=== PATIENT | female | born 1980 | race African-American/Black ===

== ENCOUNTER 2020-11-11 11:40 | Emergency (ER) | payer MEDICAID, OTHER ==
[~2020-11-11] VITALS: Ht 157.5 cm; Wt 80.0 kg
[2020-11-11] MEDS ORDERED: ACETAMINOPHEN 325MG TABLET PO STA (12:05)
[2020-11-11] MEDS ORDERED: IBUPROFEN 600MG TABLET PO STA (12:05)
[2020-11-11 12:47] LABS: BASOPHILS % 0.6 % (0.0-2.0); EOSINOPHILS % 0.3 % (0.0-5.0); HEMATOCRIT. 43.7 % (36.0-48.0); HEMOGLOBIN. 14.9 g/dL (12.0-16.0); LYMPHOCYTES % 7.2 % (20.0-50.0); MEAN CORPUSCULAR HEMOGLOBIN 28.9 pg (28.0-32.0); MEAN CORPUSCULAR VOLUME 84.9 fL (81.0-99.0); MEAN PLATELET VOLUME 9.1 fl (7.4-10.4); MONOCYTES % 12.2 % (2.0-8.0); NEUTROPHILS % 79.7 % (40.0-76.0); PLATELET 273 x1000/uL (130-400); RED BLOOD CELL COUNT 5.15 mill/uL (4.2-5.4)
[2020-11-11 13:11] LABS: HCG SCREEN NEGATIVE
[2020-11-11 13:26] LABS: CHLORIDE 99 mEq/L (98-107)
[2020-11-11] MEDS ORDERED: CLONIDINE 0.1MG TABLET PO NR (13:45)
[2020-11-11 14:16] LABS: CLARITY URINE CLOUDY (CLEAR); COLOR URINE YELLOW (YELLOW); KETONES URINE NEGATIVE (NEGATIVE); LEUKOCYTE ESTERASE URINE TRACE (NEGATIVE); NITRITE URINE NEGATIVE (NEGATIVE); OCCULT BLOOD URINE 1+ (NEGATIVE); PH URINE 6.5 (4.5-8.0); PROTEIN URINE 3+ (NEGATIVE); SPECIFIC GRAVITY URINE 1.021 (1.005-1.030)
[2020-11-11] MEDS ORDERED: HYDR25TA MT (14:21)
[2020-11-11 15:05] VITALS: BP 177/99
== END 2020-11-11 15:16 | disposition home or self-care (01) ==
LOC: ER 11:40 → CANBEDREQ 16:54
DX: U07.1 COVID-19 (principal); I10 Essential (primary) hypertension; F17.200 Nicotine dependence, unspecified, uncomplicated
CPT/HCPCS: 36415; 71045; 80053; 81003; 82728; 83605; 84145; 84484; 84703; 85025; 85384; 86140; 87040; 87086; 93005; 99285; C9803; U0003; U0005

== ENCOUNTER 2024-12-21 14:03 | Inpatient (IN) | payer MEDICAID ==
[~2024-12-21] VITALS: Ht 175.3 cm; Wt 92.5 kg
[2024-12-21] VITALS (11 sets, daily range): BP systolic 141–189; BP diastolic 81–100; PULSE 80–93; RESP 20–26; TEMP 36.22512; O2SAT 99–100
[~2024-12-21 14:03] MED LIST: HYDR25TA MT
[2024-12-21 16:15] LABS: HEMATOCRIT. 32.1 % (36.0-48.0); HEMOGLOBIN. 10.2 g/dL (12.0-16.0); MEAN PLATELET VOLUME 9.2 fl (7.4-10.4); PLATELET 236 x1000/uL (130-400); RED BLOOD CELL COUNT 3.53 mill/uL (4.2-5.4); RED CELL DISTRIBUTION WIDTH 20.5 % (11.6-14.6)
[2024-12-21 16:33] LABS: INR 1.1
[2024-12-21 16:40] LABS: UREA NITROGEN BLOOD 80 mg/dL (9-23)
[2024-12-21 16:41] LABS: ASPARTATE AMINOTRANSFERASE 31 IU/L (<34); BILIRUBIN DIRECT < 0.1 mg/dL (<=3.0)
[2024-12-21 16:42] LABS: BILIRUBIN TOTAL < 0.2 mg/dL (0.1-1.0); PROTEIN TOTAL 7.4 g/dL (6.0-8.3)
[2024-12-21 16:51] LABS: CREATININE 13.9 mg/dL (0.6-1.0); TROPONIN I HIGH SENSITIVITY 57 ng/L (3.0-34)
[2024-12-21] MEDS: LORAZEPAM 2MG/ML UD SYRINGE IV NR (17:56)
[2024-12-21 18:00] LABS: EOSINOPHILS % MANUAL 2.0 % (0.0-5.0); LYMPHOCYTES % MANUAL 4.0 % (20.0-60.0); MONOCYTES % MANUAL 7.0 % (2.0-8.0); NEUTROPHILS % MANUAL 87.0 % (45.0-75.0); PLATELET ESTIMATE NORMAL
[2024-12-21] MEDS ORDERED: KETAMINE HCL 50 MG/ML 10ML ONE (18:49)
[2024-12-21] MEDS: MIDAZOLAM HCL 2 MG/2 ML VIAL IV ONE (18:59)
[2024-12-21] MEDS: KETAMINE HCL 50 MG/ML 10ML IM ONE (18:59)
[2024-12-21 20:04] LABS: HEMATOCRIT. 34.6 % (36.0-48.0); HEMOGLOBIN. 10.7 g/dL (12.0-16.0); MEAN PLATELET VOLUME 8.7 fl (7.4-10.4); PLATELET 276 x1000/uL (130-400); RED BLOOD CELL COUNT 3.68 mill/uL (4.2-5.4); RED CELL DISTRIBUTION WIDTH 20.3 % (11.6-14.6)
[2024-12-21] MEDS: PROPOFOL 10MG/ML 100ML 100 ML IV SCH (20:09)
[2024-12-21 20:13] LABS: UREA NITROGEN BLOOD 73 mg/dL (9-23)
[2024-12-21 20:15] LABS: ASPARTATE AMINOTRANSFERASE 75 IU/L (<34); BILIRUBIN TOTAL < 0.2 mg/dL (0.1-1.0); PROTEIN TOTAL 7.7 g/dL (6.0-8.3)
[2024-12-21] MEDS ORDERED: ACETAMINOPHEN 650MG SUPP PR PRN (20:30)
[2024-12-21] MEDS ORDERED: ACETAMINOPHEN 650MG/20.3ML UDC NG PRN (20:30)
[2024-12-21 20:43] LABS: CREATININE 14.2 mg/dL (0.6-1.0); TROPONIN I HIGH SENSITIVITY 69 ng/L (3.0-34)
[2024-12-21 21:13] LABS: BG BASE EXCESS -14.2 mmol/L (-2.0-3.0); BG CARBOXYHEMOGLOBIN 1.1 % (0.5-1.5); BG DEOXYHEMOGLOBIN 0.2 % (0.0-5.0); BG FRACTION INSPIRED OXYGEN 100; BG HCO3 ACT 11.7 mmol/L (21.0-28.0); BG METHEMOGLOBIN 0.3 % (0.5-1.5); BG OXYGEN SATURATION 99.8 % (94.0-98.0); BG OXYHEMOGLOBIN 98.4 % (94.0-98.0); BG PCO2 27.7 mmHg (32.0-45.0); BG PEEP (cmH2O) 5.0 cmH2O; BG PH 7.244 (7.350-7.450); BG PO2 299.5 mmHg (83.0-108.0); BG SAMPLE SITE RIGHT RADIAL; BG TIDAL VOLUME(mL) 500.0 mL; BG TOTAL HEMOGLOBIN 10.9 g/dL (12.0-16.0); BG VENT MODE VENT - APRV; BG VENT RATE 20.0 set
[2024-12-21 21:58] LABS: EOSINOPHILS % MANUAL 4.0 % (0.0-5.0); LYMPHOCYTES % MANUAL 18.0 % (20.0-60.0); MONOCYTES % MANUAL 15.0 % (2.0-8.0); NEUTROPHILS % MANUAL 63.0 % (45.0-75.0); PLATELET ESTIMATE NORMAL
[2024-12-21 22:23] LABS: UREA NITROGEN BLOOD 75 mg/dL (9-23)
[2024-12-21 22:39] LABS: CREATININE 13.2 mg/dL (0.6-1.0); PHOSPHORUS 9.7 mg/dL (2.5-4.9)
[2024-12-22] VITALS (120 sets, daily range): BP systolic 111–207; BP diastolic 64–120; PULSE 86–103; RESP 10–34; TEMP 36.3918–36.7516; O2SAT 95–100
[2024-12-22 00:39] LABS: *AMPHETAMINES SCREEN URINE PRESUMPTIVE POSITIVE (NEGATIVE); *BARBITURATES SCREEN URINE NEGATIVE (NEGATIVE); *BENZODIAZEPINES SCREEN URINE NEGATIVE (NEGATIVE); *COCAINE SCREEN URINE NEGATIVE (NEGATIVE); METHADONE URINE SCREEN NEGATIVE (NEGATIVE); OPIATES URINE SCREEN NEGATIVE (NEGATIVE)
[2024-12-22 00:40] LABS: CANNABINOID URINE SCREEN NEGATIVE (NEGATIVE); ECSTASY MDMA SCREEN URINE NEGATIVE (NEGATIVE); PHENCYCLIDINE URINE SCREEN NEGATIVE (NEGATIVE)
[2024-12-22] MEDS ORDERED: PROPOFOL 10MG/ML 100ML 100 ML IV PRN (02:00)
[2024-12-22] MEDS: PROPOFOL 10MG/ML 100ML 100 ML IV PRN (02:42)
[2024-12-22] MEDS: LABETALOL 5MG/ML 4ML INJ IV PRN (04:35)
[2024-12-22 04:41] LABS: HEMATOCRIT. 35.1 % (36.0-48.0); HEMOGLOBIN. 11.5 g/dL (12.0-16.0); MEAN PLATELET VOLUME 9.1 fl (7.4-10.4); PLATELET 246 x1000/uL (130-400); RED BLOOD CELL COUNT 3.96 mill/uL (4.2-5.4); RED CELL DISTRIBUTION WIDTH 20.5 % (11.6-14.6)
[2024-12-22 05:00] LABS: UREA NITROGEN BLOOD 42.0 mg/dL (9-23)
[2024-12-22 05:03] LABS: PHOSPHORUS 6.2 mg/dL (2.5-4.9)
[2024-12-22] MEDS: NICARDIPINE 50 MG in SODIUM CHLORIDE 0.9% 230 ML IV PRN (05:12)
[2024-12-22 05:28] LABS: CREATININE 9.1 mg/dL (0.6-1.0)
[2024-12-22] MEDS ORDERED: PANTOPRAZOLE SODIUM 40 MG/VIAL IV SCH (09:00)
[2024-12-22] MEDS ORDERED: ONDANSETRON HCL 4MG/2ML INJ IV PRN ×2 (09:00→09:15)
[2024-12-22] MEDS ORDERED: ACETAMINOPHEN 325MG TABLET PO PRN (09:15)
[2024-12-22] MEDS: PANTOPRAZOLE SODIUM 40 MG/VIAL IV SCH (09:45)
[2024-12-22 09:46] LABS: BG BASE EXCESS -5.8 mmol/L (-2.0-3.0); BG CARBOXYHEMOGLOBIN 1.5 % (0.5-1.5); BG DEOXYHEMOGLOBIN 0.8 % (0.0-5.0); BG FRACTION INSPIRED OXYGEN 50; BG HCO3 ACT 17.4 mmol/L (21.0-28.0); BG METHEMOGLOBIN 0.3 % (0.5-1.5); BG OXYGEN SATURATION 99.2 % (94.0-98.0); BG OXYHEMOGLOBIN 97.4 % (94.0-98.0); BG PCO2 27.5 mmHg (32.0-45.0); BG PEEP (cmH2O) 5.0 cmH2O; BG PH 7.419 (7.350-7.450); BG PO2 149.9 mmHg (83.0-108.0); BG SAMPLE SITE RIGHT RADIAL; BG TIDAL VOLUME(mL) 500.0 mL; BG TOTAL HEMOGLOBIN 11.5 g/dL (12.0-16.0); BG VENT MODE VENT - AC; BG VENT RATE 20.0 set
[2024-12-22] MEDS: ENOXAPARIN 100MG/ML SYR SUBCUT SCH (09:46)
[2024-12-22 10:12] LABS: BAND% 2.0 % (1.0-6.0); LYMPHOCYTES % MANUAL 4.0 % (20.0-60.0); MONOCYTES % MANUAL 6.0 % (2.0-8.0); NEUTROPHILS % MANUAL 88.0 % (45.0-75.0); PLATELET ESTIMATE NORMAL
[2024-12-22] MEDS: CEFTRIAXONE 1GM/50ML 50 ML IV SCH (11:10)
[2024-12-22] MEDS: LANTHANUM CARBONATE 500MG CHEW TABLET PO SCH (12:57)
[2024-12-22 19:09] LABS: CLARITY URINE CLEAR (CLEAR); COLOR URINE YELLOW (YELLOW); GLUCOSE URINE TRACE (NEGATIVE); KETONES URINE 1+ (NEGATIVE); LEUKOCYTE ESTERASE URINE NEGATIVE (NEGATIVE); NITRITE URINE NEGATIVE (NEGATIVE); OCCULT BLOOD URINE 3+ (NEGATIVE); PH URINE 6.0 (4.5-8.0); PROTEIN URINE 3+ (NEGATIVE); SPECIFIC GRAVITY URINE 1.018 (1.005-1.030); UROBILINOGEN URINE 0.2 E.U./dL (0.2-1.0)
[2024-12-22 20:29] LABS: BACTERIA URINE 1+; RBC URINE 0-2 /hpf (0-2); SQUAMOUS EPITHELIAL CELL URINE 1+ /lpf (RARE/1+); WBC URINE 0-2 /hpf (0-2)
[2024-12-22] MEDS: ACETAMINOPHEN 650MG/20.3ML UDC NG PRN (22:02)
[2024-12-23] VITALS (111 sets, daily range): BP systolic 122–202; BP diastolic 63–182; PULSE 80–127; RESP 16–43; TEMP 37.33632–37.83636; O2SAT 82–99
[2024-12-23] MEDS: PROPOFOL 10MG/ML 100ML 100 ML IV PRN (04:16)
[2024-12-23 05:22] LABS: BASOPHILS % 0.5 % (0.0-2.0); EOSINOPHILS % 0.3 % (0.0-5.0); HEMATOCRIT. 34.2 % (36.0-48.0); HEMOGLOBIN. 11.1 g/dL (12.0-16.0); LYMPHOCYTES % 7.5 % (20.0-50.0); MEAN PLATELET VOLUME 9.2 fl (7.4-10.4); MONOCYTES % 12.2 % (2.0-8.0); NEUTROPHILS % 79.5 % (40.0-76.0); PLATELET 270 x1000/uL (130-400); RED BLOOD CELL COUNT 3.77 mill/uL (4.2-5.4); RED CELL DISTRIBUTION WIDTH 20.1 % (11.6-14.6)
[2024-12-23 06:11] LABS: TRIGLYCERIDE 217.0 mg/dL (0-150)
[2024-12-23 06:20] LABS: UREA NITROGEN BLOOD 36.0 mg/dL (9-23)
[2024-12-23 06:21] LABS: CREATININE 9.7 mg/dL (0.6-1.0)
[2024-12-23] MEDS ORDERED: PANTOPRAZOLE SODIUM 40 MG/VIAL IV SCH (09:00)
[2024-12-23] MEDS: HYDRALAZINE 20MG/ML VIAL IV PRN (10:26)
[2024-12-23] MEDS: ASPIRIN 81MG TABLET NG SCH (10:27)
[2024-12-23 11:25] LABS: BG BASE EXCESS 0.2 mmol/L (-2.0-3.0); BG CARBOXYHEMOGLOBIN 1.8 % (0.5-1.5); BG DEOXYHEMOGLOBIN 2.0 % (0.0-5.0); BG FRACTION INSPIRED OXYGEN 40; BG HCO3 ACT 22.6 mmol/L (21.0-28.0); BG METHEMOGLOBIN 0.3 % (0.5-1.5); BG OXYGEN SATURATION 98.0 % (94.0-98.0); BG OXYHEMOGLOBIN 95.9 % (94.0-98.0); BG PCO2 29.9 mmHg (32.0-45.0); BG PEEP (cmH2O) 5.0 cmH2O; BG PH 7.497 (7.350-7.450); BG PO2 98.9 mmHg (83.0-108.0); BG SAMPLE SITE RIGHT RADIAL; BG TIDAL VOLUME(mL) 500.0 mL; BG TOTAL HEMOGLOBIN 11.9 g/dL (12.0-16.0); BG VENT MODE VENT - PRVC; BG VENT RATE 20.0 set
[2024-12-23 16:20] LABS: BG BASE EXCESS -1.9 mmol/L (-2.0-3.0); BG CARBOXYHEMOGLOBIN 2.0 % (0.5-1.5); BG DEOXYHEMOGLOBIN 3.1 % (0.0-5.0); BG FRACTION INSPIRED OXYGEN 40; BG HCO3 ACT 21.4 mmol/L (21.0-28.0); BG METHEMOGLOBIN 0.3 % (0.5-1.5); BG OXYGEN SATURATION 96.8 % (94.0-98.0); BG OXYHEMOGLOBIN 94.6 % (94.0-98.0); BG PCO2 31.6 mmHg (32.0-45.0); BG PEEP (cmH2O) 5.0 cmH2O; BG PH 7.448 (7.350-7.450); BG PO2 88.4 mmHg (83.0-108.0); BG SAMPLE SITE RIGHT RADIAL; BG TOTAL HEMOGLOBIN 11.6 g/dL (12.0-16.0); BG VENT MODE VENT - CPAP
[2024-12-23] MEDS: RACEPINEPHRINE 2.25% 0.5ML NEB VIAL HHN SCH (17:51)
[2024-12-23] MEDS: LORAZEPAM 2MG/ML UD SYRINGE IV PRN (18:10)
[2024-12-23 18:33] LABS: BG BASE EXCESS -0.4 mmol/L (-2.0-3.0); BG CARBOXYHEMOGLOBIN 1.0 % (0.5-1.5); BG DEOXYHEMOGLOBIN 5.7 % (0.0-5.0); BG FRACTION INSPIRED OXYGEN 100; BG HCO3 ACT 25.8 mmol/L (21.0-28.0); BG METHEMOGLOBIN 0.3 % (0.5-1.5); BG OXYGEN SATURATION 94.2 % (94.0-98.0); BG OXYHEMOGLOBIN 93.0 % (94.0-98.0); BG PCO2 48.5 mmHg (32.0-45.0); BG PEEP (cmH2O) 5.0 cmH2O; BG PH 7.343 (7.350-7.450); BG PO2 77.1 mmHg (83.0-108.0); BG SAMPLE SITE RIGHT RADIAL; BG TIDAL VOLUME(mL) 500.0 mL; BG TOTAL HEMOGLOBIN 12.4 g/dL (12.0-16.0); BG VENT MODE VENT - AC; BG VENT RATE 16.0 set
[2024-12-24] VITALS (106 sets, daily range): BP systolic 126–175; BP diastolic 62–146; PULSE 93–113; RESP 15–32; TEMP 99.1–100.4; O2SAT 91–99
[2024-12-24] MEDS: PROPOFOL 10MG/ML 100ML 100 ML IV PRN ×2 (03:02→19:55)
[2024-12-24] MEDS: MEPERIDINE HCL/PF 50MG/ML CPJ IV SCH (03:36)
[2024-12-24 05:36] LABS: HEMATOCRIT. 29.3 % (36.0-48.0); HEMOGLOBIN. 9.4 g/dL (12.0-16.0); MEAN PLATELET VOLUME 9.7 fl (7.4-10.4); PLATELET 236 x1000/uL (130-400); RED BLOOD CELL COUNT 3.26 mill/uL (4.2-5.4); RED CELL DISTRIBUTION WIDTH 20.0 % (11.6-14.6)
[2024-12-24 05:54] LABS: TRIGLYCERIDE 234.0 mg/dL (0-150); UREA NITROGEN BLOOD 38.0 mg/dL (9-23)
[2024-12-24 06:03] LABS: CREATININE 8.2 mg/dL (0.6-1.0)
[2024-12-24 10:30] LABS: BG BASE EXCESS -3.9 mmol/L (-2.0-3.0); BG CARBOXYHEMOGLOBIN 1.1 % (0.5-1.5); BG DEOXYHEMOGLOBIN 0.6 % (0.0-5.0); BG FRACTION INSPIRED OXYGEN 40; BG HCO3 ACT 19.3 mmol/L (21.0-28.0); BG METHEMOGLOBIN 0.2 % (0.5-1.5); BG OXYGEN SATURATION 99.4 % (94.0-98.0); BG OXYHEMOGLOBIN 98.1 % (94.0-98.0); BG PCO2 28.4 mmHg (32.0-45.0); BG PEEP (cmH2O) 5.0 cmH2O; BG PH 7.449 (7.350-7.450); BG PO2 143.3 mmHg (83.0-108.0); BG SAMPLE SITE RIGHT RADIAL; BG TIDAL VOLUME(mL) 500.0 mL; BG TOTAL HEMOGLOBIN 9.6 g/dL (12.0-16.0); BG TOTAL RESPIRATORY RATE 17 b/min; BG VENT MODE VENT - AC; BG VENT RATE 16.0 set
[2024-12-24] MEDS: DEXTROSE 50% WATER 50ML SYRINGE IV PRN (13:02)
[2024-12-24 14:03] LABS: BAND% 4.0 % (1.0-6.0); LYMPHOCYTES % MANUAL 3.0 % (20.0-60.0); MONOCYTES % MANUAL 4.0 % (2.0-8.0); NEUTROPHILS % MANUAL 89.0 % (45.0-75.0); PLATELET ESTIMATE NORMAL
[2024-12-24 15:43] LABS: BG BASE EXCESS -4.6 mmol/L (-2.0-3.0); BG CARBOXYHEMOGLOBIN 1.4 % (0.5-1.5); BG DEOXYHEMOGLOBIN 5.6 % (0.0-5.0); BG FRACTION INSPIRED OXYGEN 40; BG HCO3 ACT 19.7 mmol/L (21.0-28.0); BG METHEMOGLOBIN 0.3 % (0.5-1.5); BG OXYGEN SATURATION 94.3 % (94.0-98.0); BG OXYHEMOGLOBIN 92.7 % (94.0-98.0); BG PCO2 33.4 mmHg (32.0-45.0); BG PEEP (cmH2O) 5.0 cmH2O; BG PH 7.388 (7.350-7.450); BG PO2 74.5 mmHg (83.0-108.0); BG SAMPLE SITE RIGHT RADIAL; BG TIDAL VOLUME(mL) 500.0 mL; BG TOTAL HEMOGLOBIN 10.8 g/dL (12.0-16.0); BG VENT MODE VENT - AC; BG VENT RATE 16.0 set
[2024-12-24] MEDS: BLOOD SUGAR DIAGNOSTIC STRIP TEST SCH (16:56)
[2024-12-24] MEDS: INSULIN LISPRO 100 UNITS/ML SUBCUT SCH (16:57)
[2024-12-24] MEDS ORDERED: CEFEPIME 1GM IN DEXT 5% 50ML IV SCH (20:30)
[2024-12-24] MEDS: AZITHROMYCIN 500 MG TABLET GT SCH (21:24)
[2024-12-24] MEDS: CEFEPIME 1GM/50ML 50 ML IV SCH (22:22)
[2024-12-25] VITALS (98 sets, daily range): BP systolic 116–174; BP diastolic 55–105; PULSE 92–107; RESP 6–37; TEMP 37.28076–37.9; O2SAT 91–99
[2024-12-25] MEDS: ACETAMINOPHEN 650MG SUPP PR PRN (05:12)
[2024-12-25] MEDS ORDERED: DEXMEDETOMIDINE 250 ML IV PRN (05:45)
[2024-12-25 09:15] LABS: BG BASE EXCESS -6.8 mmol/L (-2.0-3.0); BG CARBOXYHEMOGLOBIN 1.0 % (0.5-1.5); BG DEOXYHEMOGLOBIN 3.3 % (0.0-5.0); BG FRACTION INSPIRED OXYGEN 50; BG HCO3 ACT 18.1 mmol/L (21.0-28.0); BG METHEMOGLOBIN 0.3 % (0.5-1.5); BG OXYGEN SATURATION 96.7 % (94.0-98.0); BG OXYHEMOGLOBIN 95.4 % (94.0-98.0); BG PCO2 33.7 mmHg (32.0-45.0); BG PEEP (cmH2O) 5.0 cmH2O; BG PH 7.347 (7.350-7.450); BG PO2 91.6 mmHg (83.0-108.0); BG SAMPLE SITE RIGHT RADIAL; BG TIDAL VOLUME(mL) 500.0 mL; BG TOTAL HEMOGLOBIN 9.1 g/dL (12.0-16.0); BG TOTAL RESPIRATORY RATE 26 b/min; BG VENT MODE VENT - AC; BG VENT RATE 16.0 set
[2024-12-25] MEDS: LOSARTAN 100 MG TABLET PO SCH (10:26)
[2024-12-25 10:54] LABS: HEMATOCRIT. 29.6 % (36.0-48.0); HEMOGLOBIN. 9.4 g/dL (12.0-16.0); MEAN PLATELET VOLUME 8.8 fl (7.4-10.4); PLATELET 262 x1000/uL (130-400); RED BLOOD CELL COUNT 3.29 mill/uL (4.2-5.4); RED CELL DISTRIBUTION WIDTH 20.1 % (11.6-14.6)
[2024-12-25 11:06] LABS: TRIGLYCERIDE 382.0 mg/dL (0-150); UREA NITROGEN BLOOD 49.0 mg/dL (9-23)
[2024-12-25 11:17] LABS: CREATININE 8.9 mg/dL (0.6-1.0)
[2024-12-25] MEDS ORDERED: FENTANYL CITRATE/PF 1,000 MCG in SODIUM CHLORIDE 0.9% 80 ML IV PRN (14:30)
[2024-12-25] MEDS: PROPOFOL 10MG/ML 100ML 100 ML IV PRN (18:35)
[2024-12-25] MEDS: FENTANYL CITRATE 2,500 MCG in SODIUM CHLORIDE 0.9% 200 ML IV PRN (21:00)
[2024-12-25 21:06] LABS: LYMPHOCYTES % MANUAL 3.0 % (20.0-60.0); MONOCYTES % MANUAL 7.0 % (2.0-8.0); NEUTROPHILS % MANUAL 90.0 % (45.0-75.0); PLATELET ESTIMATE NORMAL
[2024-12-26] VITALS (107 sets, daily range): BP systolic 108–169; BP diastolic 62–105; PULSE 88–102; RESP 12–26; TEMP 36.8–37.6; O2SAT 94–100
[2024-12-26] MEDS: MIDAZOLAM 100MG/100ML PMX 100 ML IV PRN (00:30)
[2024-12-26 05:25] LABS: HEMATOCRIT. 25.9 % (36.0-48.0); HEMOGLOBIN. 8.4 g/dL (12.0-16.0); MEAN PLATELET VOLUME 9.5 fl (7.4-10.4); PLATELET 234 x1000/uL (130-400); RED BLOOD CELL COUNT 2.87 mill/uL (4.2-5.4); RED CELL DISTRIBUTION WIDTH 20.3 % (11.6-14.6)
[2024-12-26 05:52] LABS: TRIGLYCERIDE 373.0 mg/dL (0-150); UREA NITROGEN BLOOD 51.0 mg/dL (9-23)
[2024-12-26 06:03] LABS: CREATININE 8.8 mg/dL (0.6-1.0)
[2024-12-26 09:10] LABS: BG BASE EXCESS -8.5 mmol/L (-2.0-3.0); BG CARBOXYHEMOGLOBIN 2.0 % (0.5-1.5); BG DEOXYHEMOGLOBIN 2.3 % (0.0-5.0); BG FRACTION INSPIRED OXYGEN 50; BG HCO3 ACT 16.5 mmol/L (21.0-28.0); BG METHEMOGLOBIN 0.3 % (0.5-1.5); BG OXYGEN SATURATION 97.6 % (94.0-98.0); BG OXYHEMOGLOBIN 95.4 % (94.0-98.0); BG PCO2 32.0 mmHg (32.0-45.0); BG PEEP (cmH2O) 5.0 cmH2O; BG PH 7.331 (7.350-7.450); BG PO2 101.0 mmHg (83.0-108.0); BG SAMPLE SITE RIGHT RADIAL; BG TIDAL VOLUME(mL) 500.0 mL; BG TOTAL HEMOGLOBIN 9.0 g/dL (12.0-16.0); BG VENT MODE VENT - AC; BG VENT RATE 16.0 set
[2024-12-26 13:59] LABS: BAND% 2.0 % (1.0-6.0); EOSINOPHILS % MANUAL 3.0 % (0.0-5.0); LYMPHOCYTES % MANUAL 8.0 % (20.0-60.0); MONOCYTES % MANUAL 3.0 % (2.0-8.0); NEUTROPHILS % MANUAL 84.0 % (45.0-75.0); PLATELET ESTIMATE NORMAL
[2024-12-26] MEDS ORDERED: DEXMEDETOMIDINE 100 ML IV PRN (14:15)
[2024-12-27] VITALS (112 sets, daily range): BP systolic 129–187; BP diastolic 64–151; PULSE 92–116; RESP 13–30; TEMP 36.8–38.4; O2SAT 95–100
[2024-12-27 06:02] LABS: HEMATOCRIT. 29.4 % (36.0-48.0); HEMOGLOBIN. 9.3 g/dL (12.0-16.0); MEAN PLATELET VOLUME 10.3 fl (7.4-10.4); PLATELET 295 x1000/uL (130-400); RED BLOOD CELL COUNT 3.23 mill/uL (4.2-5.4); RED CELL DISTRIBUTION WIDTH 20.3 % (11.6-14.6)
[2024-12-27 06:19] LABS: UREA NITROGEN BLOOD 58.0 mg/dL (9-23)
[2024-12-27 06:20] LABS: CREATININE 9.2 mg/dL (0.6-1.0)
[2024-12-27 08:45] LABS: BG BASE EXCESS -7.2 mmol/L (-2.0-3.0); BG CARBOXYHEMOGLOBIN 1.6 % (0.5-1.5); BG DEOXYHEMOGLOBIN 3.6 % (0.0-5.0); BG FRACTION INSPIRED OXYGEN 50; BG HCO3 ACT 19.2 mmol/L (21.0-28.0); BG METHEMOGLOBIN 0.3 % (0.5-1.5); BG OXYGEN SATURATION 96.3 % (94.0-98.0); BG OXYHEMOGLOBIN 94.5 % (94.0-98.0); BG PCO2 42.2 mmHg (32.0-45.0); BG PEEP (cmH2O) 5.0 cmH2O; BG PH 7.275 (7.350-7.450); BG PO2 90.7 mmHg (83.0-108.0); BG SAMPLE SITE RIGHT RADIAL; BG TIDAL VOLUME(mL) 500.0 mL; BG TOTAL HEMOGLOBIN 10.5 g/dL (12.0-16.0); BG VENT MODE VENT - AC; BG VENT RATE 16.0 set
[2024-12-27 16:45] LABS: EOSINOPHILS % MANUAL 10.0 % (0.0-5.0); LYMPHOCYTES % MANUAL 10.0 % (20.0-60.0); MONOCYTES % MANUAL 7.0 % (2.0-8.0); NEUTROPHILS % MANUAL 73.0 % (45.0-75.0); PLATELET ESTIMATE NORMAL
[2024-12-28] VITALS (100 sets, daily range): BP systolic 119–178; BP diastolic 58–136; PULSE 100–118; RESP 15–28; TEMP 37.1–37.7; O2SAT 97–100
[2024-12-28] MEDS: ACETAMINOPHEN 325MG TABLET PO PRN (03:54)
[2024-12-28 07:00] LABS: HEMATOCRIT. 26.8 % (36.0-48.0); HEMOGLOBIN. 8.7 g/dL (12.0-16.0); MEAN PLATELET VOLUME 9.7 fl (7.4-10.4); PLATELET 290 x1000/uL (130-400); RED BLOOD CELL COUNT 2.97 mill/uL (4.2-5.4); RED CELL DISTRIBUTION WIDTH 20.4 % (11.6-14.6)
[2024-12-28 07:11] LABS: UREA NITROGEN BLOOD 49.0 mg/dL (9-23)
[2024-12-28 08:38] LABS: CREATININE 6.7 mg/dL (0.6-1.0)
[2024-12-28 10:58] LABS: EOSINOPHILS % MANUAL 6.0 % (0.0-5.0); LYMPHOCYTES % MANUAL 6.0 % (20.0-60.0); MONOCYTES % MANUAL 15.0 % (2.0-8.0); NEUTROPHILS % MANUAL 73.0 % (45.0-75.0); PLATELET ESTIMATE NORMAL
[2024-12-28] MEDS: IPRATROPIUM/ALBUTEROL 0.5-3(2.5)MG/3ML NEB HHN PRN (12:07)
[2024-12-28] MEDS: EPOETIN ALFA-EPBX 4,000 UNITS/ML VIAL SUBCUT SCH (21:05)
[2024-12-29] VITALS (99 sets, daily range): BP systolic 100–177; BP diastolic 47–105; PULSE 73–139; RESP 12–28; TEMP 36.9–37.6; O2SAT 91–100
[2024-12-29] MEDS: DEXMEDETOMIDINE 250 ML IV PRN (01:03)
[2024-12-29 05:31] LABS: HEMATOCRIT. 25.6 % (36.0-48.0); HEMOGLOBIN. 8.1 g/dL (12.0-16.0); MEAN PLATELET VOLUME 9.0 fl (7.4-10.4); PLATELET 313 x1000/uL (130-400); RED BLOOD CELL COUNT 2.81 mill/uL (4.2-5.4); RED CELL DISTRIBUTION WIDTH 19.9 % (11.6-14.6)
[2024-12-29 05:55] LABS: UREA NITROGEN BLOOD 54.0 mg/dL (9-23)
[2024-12-29 06:09] LABS: CREATININE 7.5 mg/dL (0.6-1.0)
[2024-12-29] MEDS: MENTHOL/LANOLIN/CALAMINE/ZN OX OINT 71GM TOP SCH (16:02)
[2024-12-29 16:51] LABS: EOSINOPHILS % MANUAL 7.0 % (0.0-5.0); LYMPHOCYTES % MANUAL 10.0 % (20.0-60.0); METAMYELOCYTES % 2.0 % (0-0); MONOCYTES % MANUAL 9.0 % (2.0-8.0); MYELOCYTES % 2.0 % (0-0); NEUTROPHILS % MANUAL 70.0 % (45.0-75.0); PLATELET ESTIMATE NORMAL
[2024-12-30] VITALS (102 sets, daily range): BP systolic 114–177; BP diastolic 61–121; PULSE 80–103; RESP 11–27; TEMP 36.89184–37.4; O2SAT 95–100
[2024-12-30] MEDS ORDERED: DOCUSATE SODIUM 250MG CAPSULE PO PRN (06:15)
[2024-12-30 06:18] LABS: HEMATOCRIT. 25.2 % (36.0-48.0); HEMOGLOBIN. 8.0 g/dL (12.0-16.0); MEAN PLATELET VOLUME 8.8 fl (7.4-10.4); PLATELET 330 x1000/uL (130-400); RED BLOOD CELL COUNT 2.75 mill/uL (4.2-5.4); RED CELL DISTRIBUTION WIDTH 20.2 % (11.6-14.6)
[2024-12-30 06:28] LABS: UREA NITROGEN BLOOD 71.0 mg/dL (9-23)
[2024-12-30 06:45] LABS: CREATININE 8.1 mg/dL (0.6-1.0)
[2024-12-30] MEDS: NEOMY SULF/BACITRAC ZN/POLY OINT 28GM TOP SCH (09:00)
[2024-12-30 12:23] LABS: HEPATITIS A AB IGM NEGATIVE (Negative); HEPATITIS B CORE AB IGM NEGATIVE (Negative)
[2024-12-30 12:24] LABS: HEPATITIS C AB NON REACTIVE (Neg) (Negative)
[2024-12-30 16:14] LABS: EOSINOPHILS % MANUAL 8.0 % (0.0-5.0); LYMPHOCYTES % MANUAL 13.0 % (20.0-60.0); METAMYELOCYTES % 2.0 % (0-0); MONOCYTES % MANUAL 10.0 % (2.0-8.0); MYELOCYTES % 2.0 % (0-0); NEUTROPHILS % MANUAL 65.0 % (45.0-75.0); PLATELET ESTIMATE NORMAL
[2024-12-31] VITALS (106 sets, daily range): BP systolic 115–153; BP diastolic 62–107; PULSE 71–92; RESP 10–28; TEMP 36.114–37.3; O2SAT 96–100
[2024-12-31 05:41] LABS: PHOSPHORUS 5.0 mg/dL (2.5-4.9)
[2024-12-31 15:01] LABS: BG BASE EXCESS 0.0 mmol/L (-2.0-3.0); BG CARBOXYHEMOGLOBIN 1.0 % (0.5-1.5); BG DEOXYHEMOGLOBIN 5.2 % (0.0-5.0); BG FRACTION INSPIRED OXYGEN 30; BG HCO3 ACT 24.3 mmol/L (21.0-28.0); BG METHEMOGLOBIN 0.3 % (0.5-1.5); BG OXYGEN SATURATION 94.7 % (94.0-98.0); BG OXYHEMOGLOBIN 93.5 % (94.0-98.0); BG PCO2 38.2 mmHg (32.0-45.0); BG PEEP (cmH2O) 5.0 cmH2O; BG PH 7.422 (7.350-7.450); BG PO2 78.6 mmHg (83.0-108.0); BG SAMPLE SITE RIGHT RADIAL; BG TIDAL VOLUME(mL) 500.0 mL; BG TOTAL HEMOGLOBIN 8.0 g/dL (12.0-16.0); BG VENT MODE VENT - SIMV; BG VENT RATE 16.0 set
[2024-12-31] MEDS ORDERED: DEXMEDETOMIDINE 250 ML IV PRN (17:00)
[2025-01-01] VITALS (104 sets, daily range): BP systolic 114–151; BP diastolic 66–106; PULSE 74–100; RESP 10–28; TEMP 37–37.5; O2SAT 98–100
[2025-01-01] MEDS: DEXMEDETOMIDINE 100 ML IV PRN ×2 (01:30→15:29)
[2025-01-01 07:04] LABS: BASOPHILS % 0.8 % (0.0-2.0); EOSINOPHILS % 5.0 % (0.0-5.0); HEMATOCRIT. 22.5 % (36.0-48.0); HEMOGLOBIN. 7.3 g/dL (12.0-16.0); LYMPHOCYTES % 13.0 % (20.0-50.0); MEAN PLATELET VOLUME 9.3 fl (7.4-10.4); MONOCYTES % 10.6 % (2.0-8.0); NEUTROPHILS % 70.6 % (40.0-76.0); PLATELET 370 x1000/uL (130-400); RED BLOOD CELL COUNT 2.50 mill/uL (4.2-5.4); RED CELL DISTRIBUTION WIDTH 19.7 % (11.6-14.6)
[2025-01-01 07:36] LABS: UREA NITROGEN BLOOD 77.0 mg/dL (9-23)
[2025-01-01] MEDS: IPRATROPIUM/ALBUTEROL 0.5-3(2.5)MG/3ML NEB HHN SCH (09:06)
[2025-01-01 09:26] LABS: CREATININE 7.9 mg/dL (0.6-1.0)
[2025-01-01] MEDS: IPRATROPIUM/ALBUTEROL 0.5-3(2.5)MG/3ML NEB HHN PRN (13:11)
[2025-01-01] MEDS ORDERED: HEPARIN 1000 UNITS/ML 10ML ONE (13:22)
[2025-01-01] MEDS: DOCUSATE SODIUM SUGAR FREE 100MG/10ML UDC NG SCH (17:35)
[2025-01-02] VITALS (109 sets, daily range): BP systolic 91–187; BP diastolic 50–123; PULSE 70–123; RESP 12–36; TEMP 36.114–37.4; O2SAT 89–100
[2025-01-02] MEDS ORDERED: DESMOPRESSIN ACETATE 4MCG/ML AMP IV ONE (10:30)
[2025-01-02 16:41] LABS: BG BASE EXCESS -0.8 mmol/L (-2.0-3.0); BG CARBOXYHEMOGLOBIN 2.0 % (0.5-1.5); BG DEOXYHEMOGLOBIN 3.0 % (0.0-5.0); BG FLOW(L/min) 8.00 L/min; BG FRACTION INSPIRED OXYGEN 35; BG HCO3 ACT 23.7 mmol/L (21.0-28.0); BG METHEMOGLOBIN 0.3 % (0.5-1.5); BG OXYGEN SATURATION 96.9 % (94.0-98.0); BG OXYHEMOGLOBIN 94.7 % (94.0-98.0); BG PCO2 38.0 mmHg (32.0-45.0); BG PH 7.412 (7.350-7.450); BG PO2 86.8 mmHg (83.0-108.0); BG SAMPLE SITE RIGHT RADIAL; BG TOTAL HEMOGLOBIN 8.1 g/dL (12.0-16.0); BG VENT MODE COOL AEROSOL
[2025-01-03] VITALS (102 sets, daily range): BP systolic 96–224; BP diastolic 60–123; PULSE 67–133; RESP 0–36; TEMP 36.3–37.1; O2SAT 92–100
[2025-01-03 00:31] LABS: BG BASE EXCESS 0.6 mmol/L (-2.0-3.0); BG CARBOXYHEMOGLOBIN 0.6 % (0.5-1.5); BG DEOXYHEMOGLOBIN 4.1 % (0.0-5.0); BG FLOW(L/min) 3.00 L/min; BG FRACTION INSPIRED OXYGEN 32; BG HCO3 ACT 24.6 mmol/L (21.0-28.0); BG METHEMOGLOBIN 0.3 % (0.5-1.5); BG OXYGEN SATURATION 95.9 % (94.0-98.0); BG OXYHEMOGLOBIN 95.0 % (94.0-98.0); BG PCO2 36.7 mmHg (32.0-45.0); BG PH 7.444 (7.350-7.450); BG PO2 81.7 mmHg (83.0-108.0); BG SAMPLE SITE LEFT RADIAL; BG TOTAL HEMOGLOBIN 9.1 g/dL (12.0-16.0); BG VENT MODE NASAL CANNULA
[2025-01-03] MEDS ORDERED: NICARDIPINE 100 MG in SODIUM CHLORIDE 0.9% 60 ML IV PRN (01:30)
[2025-01-03] MEDS: PROPOFOL 10MG/ML 100ML 100 ML IV PRN (01:53)
[2025-01-03 03:03] LABS: BG BASE EXCESS -1.5 mmol/L (-2.0-3.0); BG CARBOXYHEMOGLOBIN 0.7 % (0.5-1.5); BG DEOXYHEMOGLOBIN 7.2 % (0.0-5.0); BG FRACTION INSPIRED OXYGEN 50; BG HCO3 ACT 22.8 mmol/L (21.0-28.0); BG METHEMOGLOBIN 0.3 % (0.5-1.5); BG OXYGEN SATURATION 92.7 % (94.0-98.0); BG OXYHEMOGLOBIN 91.8 % (94.0-98.0); BG PCO2 36.4 mmHg (32.0-45.0); BG PEEP (cmH2O) 5.0 cmH2O; BG PH 7.414 (7.350-7.450); BG PO2 68.0 mmHg (83.0-108.0); BG SAMPLE SITE LEFT RADIAL; BG TIDAL VOLUME(mL) 500.0 mL; BG TOTAL HEMOGLOBIN 9.9 g/dL (12.0-16.0); BG VENT MODE VENT - AC; BG VENT RATE 20.0 set
[2025-01-03] MEDS: FENTANYL 2500MCG/250ML PMX 250 ML IV PRN (04:37)
[2025-01-03] MEDS: METHYLPREDNISOLONE SOD SUCC 40MG/ML (ACT-O-VIAL) IV SCH (05:09)
[2025-01-03 06:06] LABS: HEMATOCRIT. 26.3 % (36.0-48.0); HEMOGLOBIN. 8.2 g/dL (12.0-16.0); MEAN PLATELET VOLUME 9.0 fl (7.4-10.4); PLATELET 514 x1000/uL (130-400); RED BLOOD CELL COUNT 2.92 mill/uL (4.2-5.4); RED CELL DISTRIBUTION WIDTH 19.9 % (11.6-14.6)
[2025-01-03 06:16] LABS: UREA NITROGEN BLOOD 78 mg/dL (9-23)
[2025-01-03 06:18] LABS: ASPARTATE AMINOTRANSFERASE 67 IU/L (<34); BILIRUBIN TOTAL 0.2 mg/dL (0.1-1.0); PROTEIN TOTAL 7.9 g/dL (6.0-8.3)
[2025-01-03 06:19] LABS: CREATININE 7.0 mg/dL (0.6-1.0)
[2025-01-03 06:28] LABS: INR 1.1
[2025-01-03] MEDS: ALTEPLASE 2MG/VIAL ITC NR (07:00)
[2025-01-03] MEDS ORDERED: IOHEXOL-350 100 ML BOTTLE ONE (07:01)
[2025-01-03 17:23] LABS: HEMATOCRIT. 25.5 % (36.0-48.0); HEMOGLOBIN. 8.0 g/dL (12.0-16.0); MEAN PLATELET VOLUME 8.3 fl (7.4-10.4); PLATELET 578 x1000/uL (130-400); RED BLOOD CELL COUNT 2.86 mill/uL (4.2-5.4); RED CELL DISTRIBUTION WIDTH 20.5 % (11.6-14.6)
[2025-01-03 17:42] LABS: UREA NITROGEN BLOOD 75.0 mg/dL (9-23)
[2025-01-03 17:52] LABS: EOSINOPHILS % MANUAL 1.0 % (0.0-5.0); LYMPHOCYTES % MANUAL 2.0 % (20.0-60.0); MONOCYTES % MANUAL 3.0 % (2.0-8.0); NEUTROPHILS % MANUAL 94.0 % (45.0-75.0); PLATELET ESTIMATE INCREASED
[2025-01-03 17:53] LABS: CREATININE 7.6 mg/dL (0.6-1.0)
[2025-01-03 18:08] LABS: EOSINOPHILS % MANUAL 8.0 % (0.0-5.0); LYMPHOCYTES % MANUAL 2.0 % (20.0-60.0); MONOCYTES % MANUAL 4.0 % (2.0-8.0); NEUTROPHILS % MANUAL 86.0 % (45.0-75.0); PLATELET ESTIMATE INCREASED
[2025-01-03] MEDS ORDERED: DIPHENHYDRAMINE 50MG/ML VIAL IV PRN (20:30)
[2025-01-03] MEDS ORDERED: ZOLPIDEM TARTRATE 5MG TABLET PO PRN (20:30)
[2025-01-03] MEDS: OXYMETAZOLINE HCL NASAL SPRAY 15ML BOTHNSTRLS SCH (22:19)
[2025-01-03] MEDS: MIDAZOLAM 100MG/100ML PMX 100 ML IV PRN (22:19)
[2025-01-03] MEDS: METHYLPREDNISOLONE SOD SUCC 125MG/2ML (ACT-O-VIAL) IV SCH (22:20)
[2025-01-04] VITALS (94 sets, daily range): BP systolic 83–200; BP diastolic 66–112; PULSE 70–129; RESP 0–26; TEMP 36.114–37; O2SAT 92–100
[2025-01-04 08:43] LABS: BG BASE EXCESS -4.0 mmol/L (-2.0-3.0); BG CARBOXYHEMOGLOBIN 1.0 % (0.5-1.5); BG DEOXYHEMOGLOBIN 4.1 % (0.0-5.0); BG FRACTION INSPIRED OXYGEN 40; BG HCO3 ACT 20.3 mmol/L (21.0-28.0); BG METHEMOGLOBIN 0.3 % (0.5-1.5); BG OXYGEN SATURATION 95.8 % (94.0-98.0); BG OXYHEMOGLOBIN 94.6 % (94.0-98.0); BG PCO2 33.7 mmHg (32.0-45.0); BG PEEP (cmH2O) 5.0 cmH2O; BG PH 7.398 (7.350-7.450); BG PO2 84.8 mmHg (83.0-108.0); BG SAMPLE SITE LEFT RADIAL; BG TIDAL VOLUME(mL) 500.0 mL; BG TOTAL HEMOGLOBIN 8.2 g/dL (12.0-16.0); BG TOTAL RESPIRATORY RATE 20 b/min; BG VENT MODE VENT - AC; BG VENT RATE 20.0 set
[2025-01-04 11:42] LABS: HEMATOCRIT. 23.4 % (36.0-48.0); HEMOGLOBIN. 7.3 g/dL (12.0-16.0); MEAN PLATELET VOLUME 8.4 fl (7.4-10.4); PLATELET 562 x1000/uL (130-400); RED BLOOD CELL COUNT 2.54 mill/uL (4.2-5.4); RED CELL DISTRIBUTION WIDTH 20.1 % (11.6-14.6)
[2025-01-04 12:25] LABS: UREA NITROGEN BLOOD 96.0 mg/dL (9-23)
[2025-01-04 12:29] LABS: CREATININE 8.8 mg/dL (0.6-1.0); LYMPHOCYTES % MANUAL 2.0 % (20.0-60.0); MONOCYTES % MANUAL 3.0 % (2.0-8.0); NEUTROPHILS % MANUAL 95.0 % (45.0-75.0); PLATELET ESTIMATE INCREASED
[2025-01-04] MEDS: DEXTROSE 50% WATER 50ML SYRINGE IV SCH (13:16)
[2025-01-04] MEDS: INSULIN REGULAR (HUMULIN R) 1000UNITS/10ML VIAL IV SCH (13:17)
[2025-01-04] MEDS ORDERED: LIDOCAINE HCL/EPINEPHRINE 1%-EPI 1:100,000 20ML VIAL ONE ×2 (14:45→15:26)
[2025-01-04 14:52] LABS: HCG SCREEN NEGATIVE
[2025-01-04] MEDS ORDERED: ROCURONIUM BROMIDE 10MG/ML VIAL 5ML IV ONE ×3 (16:00→17:41)
[2025-01-04] MEDS ORDERED: ACETAMINOPHEN 1000MG/100ML 100 ML IV ONE (16:11)
[2025-01-04] MEDS ORDERED: ONDANSETRON HCL 4MG/2ML INJ ONE (16:13)
[2025-01-04] MEDS ORDERED: CEFAZOLIN SODIUM 1000MG/VIAL ONE (16:13)
[2025-01-04] MEDS ORDERED: SODIUM BICARBONATE 8.4% 50MEQ/50ML VIAL IV ONE (16:14)
[2025-01-04] MEDS ORDERED: CALCIUM CHLORIDE 1GM/10ML SYR IV ONE ×2 (17:36)
[2025-01-04] MEDS ORDERED: SODIUM BICARBONATE 8.4% 50MEQ/50ML SYR IV ONE (17:36)
[2025-01-05] VITALS (102 sets, daily range): BP systolic 124–154; BP diastolic 71–113; PULSE 66–123; RESP 11–25; TEMP 36.114–36.9; O2SAT 94–100
[2025-01-05 06:45] LABS: HEMATOCRIT. 24.8 % (36.0-48.0); HEMOGLOBIN. 7.8 g/dL (12.0-16.0); MEAN PLATELET VOLUME 9.3 fl (7.4-10.4); PLATELET 632 x1000/uL (130-400); RED BLOOD CELL COUNT 2.78 mill/uL (4.2-5.4); RED CELL DISTRIBUTION WIDTH 20.5 % (11.6-14.6)
[2025-01-05 07:11] LABS: UREA NITROGEN BLOOD 55.0 mg/dL (9-23)
[2025-01-05 07:19] LABS: CREATININE 5.6 mg/dL (0.6-1.0)
[2025-01-05 11:30] LABS: LYMPHOCYTES % MANUAL 4.0 % (20.0-60.0); MONOCYTES % MANUAL 2.0 % (2.0-8.0); NEUTROPHILS % MANUAL 94.0 % (45.0-75.0)
[2025-01-05 11:31] LABS: PLATELET ESTIMATE INCREASED
[2025-01-05] MEDS ORDERED: CEFEPIME 1GM IN DEXT 5% 50ML IV SCH (16:45)
[2025-01-05] MEDS: DEXMEDETOMIDINE 100 ML IV PRN (18:35)
[2025-01-05] MEDS: CEFEPIME 1GM PREMIX 50ML IV SCH (21:59)
[2025-01-06] VITALS (90 sets, daily range): BP systolic 114–168; BP diastolic 64–123; PULSE 56–141; RESP 10–27; TEMP 36.9–37.2; O2SAT 96–100
[2025-01-06 05:56] LABS: HEMATOCRIT. 23.1 % (36.0-48.0); HEMOGLOBIN. 7.2 g/dL (12.0-16.0); MEAN PLATELET VOLUME 8.4 fl (7.4-10.4); PLATELET 587 x1000/uL (130-400); RED BLOOD CELL COUNT 2.53 mill/uL (4.2-5.4); RED CELL DISTRIBUTION WIDTH 20.3 % (11.6-14.6)
[2025-01-06 06:13] LABS: UREA NITROGEN BLOOD 87 mg/dL (9-23)
[2025-01-06 06:36] LABS: CREATININE 8.4 mg/dL (0.6-1.0)
[2025-01-06 12:32] LABS: LYMPHOCYTES % MANUAL 5.0 % (20.0-60.0); MONOCYTES % MANUAL 5.0 % (2.0-8.0); NEUTROPHILS % MANUAL 90.0 % (45.0-75.0)
[2025-01-06 12:33] LABS: PLATELET ESTIMATE INCREASED
[2025-01-06] MEDS ORDERED: IPRATROPIUM/ALBUTEROL 0.5-3(2.5)MG/3ML NEB HHN PRN (16:45)
[2025-01-06] MEDS: QUETIAPINE FUMARATE 25MG TABLET GT SCH (21:18)
[2025-01-07] VITALS (98 sets, daily range): BP systolic 128–180; BP diastolic 71–123; PULSE 57–103; RESP 9–31; TEMP 36.4–37.1; O2SAT 93–100
[2025-01-07] MEDS: DEXT 5%/0.45% NACL 1000ML 1,000 ML IV SCH (01:00)
[2025-01-07 05:35] LABS: HEMATOCRIT. 22.7 % (36.0-48.0); HEMOGLOBIN. 7.4 g/dL (12.0-16.0); MEAN PLATELET VOLUME 8.4 fl (7.4-10.4); PLATELET 594 x1000/uL (130-400); RED BLOOD CELL COUNT 2.53 mill/uL (4.2-5.4); RED CELL DISTRIBUTION WIDTH 20.1 % (11.6-14.6)
[2025-01-07 05:50] LABS: UREA NITROGEN BLOOD 73.0 mg/dL (9-23)
[2025-01-07 05:53] LABS: CREATININE 6.4 mg/dL (0.6-1.0)
[2025-01-07 16:17] LABS: LYMPHOCYTES % MANUAL 8.0 % (20.0-60.0); MONOCYTES % MANUAL 10.0 % (2.0-8.0); NEUTROPHILS % MANUAL 82.0 % (45.0-75.0); PLATELET ESTIMATE INCREASED
[2025-01-07] MEDS: QUETIAPINE FUMARATE 50MG TABLET GT SCH (20:51)
[2025-01-08] VITALS (81 sets, daily range): BP systolic 117–171; BP diastolic 79–112; PULSE 54–102; RESP 11–25; TEMP 36.22512–36.9; O2SAT 94–100
[2025-01-08 05:29] LABS: BASOPHILS % 0.2 % (0.0-2.0); EOSINOPHILS % 0.0 % (0.0-5.0); HEMATOCRIT. 24.6 % (36.0-48.0); HEMOGLOBIN. 7.9 g/dL (12.0-16.0); LYMPHOCYTES % 7.6 % (20.0-50.0); MEAN PLATELET VOLUME 8.5 fl (7.4-10.4); MONOCYTES % 5.1 % (2.0-8.0); NEUTROPHILS % 87.1 % (40.0-76.0); PLATELET 645 x1000/uL (130-400); RED BLOOD CELL COUNT 2.77 mill/uL (4.2-5.4); RED CELL DISTRIBUTION WIDTH 20.1 % (11.6-14.6)
[2025-01-08 05:37] LABS: FOLIC ACID (FOLATE) SERUM > 20.00 ng/mL (>5.38); VITAMIN B12 SERUM 1979 pg/mL (211-911)
[2025-01-08 05:58] LABS: CREATININE 8.0 mg/dL (0.6-1.0); UREA NITROGEN BLOOD 103 mg/dL (9-23)
[2025-01-08] MEDS: FENTANYL 2500MCG/250ML PMX 250 ML IV PRN (08:47)
[2025-01-08] MEDS ORDERED: NON FORMULARY MED XX SCH (09:45)
[2025-01-08] MEDS: IRON SUCROSE COMPLEX 100 MG/5 ML ML IV SCH (13:01)
[2025-01-08] MEDS: PANTOPRAZOLE SODIUM 40 MG/VIAL IV SCH (20:45)
[2025-01-09] VITALS (119 sets, daily range): BP systolic 110–196; BP diastolic 59–122; PULSE 59–101; RESP 13–25; TEMP 36.44736–37.11408; O2SAT 91–100
[2025-01-09 05:38] LABS: HEMATOCRIT. 23.0 % (36.0-48.0); HEMOGLOBIN. 7.1 g/dL (12.0-16.0); MEAN PLATELET VOLUME 8.7 fl (7.4-10.4); PLATELET 451 x1000/uL (130-400); RED BLOOD CELL COUNT 2.42 mill/uL (4.2-5.4); RED CELL DISTRIBUTION WIDTH 20.6 % (11.6-14.6)
[2025-01-09 05:45] LABS: INR 1.2
[2025-01-09 05:49] LABS: UREA NITROGEN BLOOD 61.0 mg/dL (9-23)
[2025-01-09 05:50] LABS: CREATININE 5.4 mg/dL (0.6-1.0)
[2025-01-09] MEDS ORDERED: POTASSIUM CHLORIDE 20MEQ/PACKET PO NR (07:00)
[2025-01-09] MEDS ORDERED: PROPOFOL 200MG/20ML VIAL IV ONE (11:07)
[2025-01-09] MEDS ORDERED: CEFAZOLIN SODIUM 1000MG/VIAL ONE (11:30)
[2025-01-09 16:23] LABS: LYMPHOCYTES % MANUAL 9.0 % (20.0-60.0); MONOCYTES % MANUAL 5.0 % (2.0-8.0); NEUTROPHILS % MANUAL 86.0 % (45.0-75.0); PLATELET ESTIMATE NORMAL
[2025-01-10] VITALS (96 sets, daily range): BP systolic 104–191; BP diastolic 16–116; PULSE 51–113; RESP 13–35; TEMP 36.3–36.9; O2SAT 94–100
[2025-01-10 04:44] LABS: BASOPHILS % 0.5 % (0.0-2.0); EOSINOPHILS % 2.7 % (0.0-5.0); HEMATOCRIT. 29.1 % (36.0-48.0); HEMOGLOBIN. 9.3 g/dL (12.0-16.0); LYMPHOCYTES % 13.0 % (20.0-50.0); MEAN PLATELET VOLUME 8.3 fl (7.4-10.4); MONOCYTES % 6.8 % (2.0-8.0); NEUTROPHILS % 77.0 % (40.0-76.0); PLATELET 572 x1000/uL (130-400); RED BLOOD CELL COUNT 3.26 mill/uL (4.2-5.4); RED CELL DISTRIBUTION WIDTH 20.1 % (11.6-14.6)
[2025-01-10 05:02] LABS: UREA NITROGEN BLOOD 83.0 mg/dL (9-23)
[2025-01-10 05:03] LABS: CREATININE 7.7 mg/dL (0.6-1.0)
[2025-01-11] VITALS (95 sets, daily range): BP systolic 109–179; BP diastolic 64–152; PULSE 57–126; RESP 7–29; TEMP 36.3–37.2; O2SAT 94–100
[2025-01-11] MEDS: DEXMEDETOMIDINE 100 ML IV PRN (02:17)
[2025-01-11] MEDS: RACEPINEPHRINE 2.25% 0.5ML NEB VIAL HHN PRN (10:12)
[2025-01-11] MEDS: PROPOFOL 10MG/ML 100ML 100 ML IV PRN (13:18)
[2025-01-11] MEDS: QUETIAPINE FUMARATE 50MG TABLET GT SCH (20:05)
[2025-01-12] VITALS (100 sets, daily range): BP systolic 113–169; BP diastolic 56–137; PULSE 56–131; RESP 2–30; TEMP 36.4–37; O2SAT 93–100
[2025-01-12] MEDS: FENTANYL CITRATE 2,500 MCG in SODIUM CHLORIDE 0.9% 200 ML IV PRN (03:49)
[2025-01-12 05:57] LABS: TRIGLYCERIDE 287.0 mg/dL (0-150); UREA NITROGEN BLOOD 48.0 mg/dL (9-23)
[2025-01-12 06:00] LABS: HEMATOCRIT. 29.1 % (36.0-48.0); HEMOGLOBIN. 9.2 g/dL (12.0-16.0); MEAN PLATELET VOLUME 9.6 fl (7.4-10.4); PLATELET 438 x1000/uL (130-400); RED BLOOD CELL COUNT 3.20 mill/uL (4.2-5.4); RED CELL DISTRIBUTION WIDTH 19.4 % (11.6-14.6)
[2025-01-12 06:35] LABS: CREATININE 7.1 mg/dL (0.6-1.0)
[2025-01-12 09:53] LABS: LYMPHOCYTES % MANUAL 4.0 % (20.0-60.0); MONOCYTES % MANUAL 11.0 % (2.0-8.0); NEUTROPHILS % MANUAL 85.0 % (45.0-75.0); PLATELET ESTIMATE INCREASED
[2025-01-12] MEDS: PROPOFOL 10MG/ML 100ML 100 ML IV PRN (19:30)
[2025-01-13] VITALS (64 sets, daily range): BP systolic 108–157; BP diastolic 55–115; PULSE 63–105; RESP 11–29; TEMP 36.3–37.3; O2SAT 98–100
[2025-01-13 06:31] LABS: UREA NITROGEN BLOOD 58.0 mg/dL (9-23)
[2025-01-13 06:39] LABS: CREATININE 6.9 mg/dL (0.6-1.0)
[2025-01-13 06:55] LABS: HEMATOCRIT. 27.4 % (36.0-48.0); HEMOGLOBIN. 9.8 g/dL (12.0-16.0); MEAN PLATELET VOLUME 9.3 fl (7.4-10.4); PLATELET 489 x1000/uL (130-400); RED BLOOD CELL COUNT 2.97 mill/uL (4.2-5.4); RED CELL DISTRIBUTION WIDTH 19.2 % (11.6-14.6)
[2025-01-13 17:50] LABS: LYMPHOCYTES % MANUAL 9.0 % (20.0-60.0); METAMYELOCYTES % 2.0 % (0-0); MONOCYTES % MANUAL 8.0 % (2.0-8.0); MYELOCYTES % 2.0 % (0-0); NEUTROPHILS % MANUAL 79.0 % (45.0-75.0); PLATELET ESTIMATE INCREASED
[2025-01-13] MEDS ORDERED: PROPOFOL 10MG/ML 100ML 100 ML IV PRN (19:15)
[2025-01-13 23:37] LABS: UREA NITROGEN BLOOD 42.0 mg/dL (9-23)
[2025-01-14] VITALS (102 sets, daily range): BP systolic 104–192; BP diastolic 58–109; PULSE 71–130; RESP 12–27; TEMP 36.3918–37.2; O2SAT 94–100
[2025-01-14 00:05] LABS: TRIGLYCERIDE 3071.0 mg/dL (0-150)
[2025-01-14 00:14] LABS: CREATININE 7.4 mg/dL (0.6-1.0)
[2025-01-14] MEDS: MIDAZOLAM 100MG/100ML PMX 100 ML IV PRN (01:28)
[2025-01-14 05:59] LABS: HEMATOCRIT. 27.8 % (36.0-48.0); HEMOGLOBIN. 9.0 g/dL (12.0-16.0); MEAN PLATELET VOLUME 8.4 fl (7.4-10.4); PLATELET 452 x1000/uL (130-400); RED BLOOD CELL COUNT 3.09 mill/uL (4.2-5.4); RED CELL DISTRIBUTION WIDTH 18.6 % (11.6-14.6)
[2025-01-14 06:07] LABS: CREATININE 8.7 mg/dL (0.6-1.0); UREA NITROGEN BLOOD 94.0 mg/dL (9-23)
[2025-01-14 13:40] LABS: BAND% 1.0 % (1.0-6.0); EOSINOPHILS % MANUAL 4.0 % (0.0-5.0); LYMPHOCYTES % MANUAL 20.0 % (20.0-60.0); METAMYELOCYTES % 3.0 % (0-0); MONOCYTES % MANUAL 10.0 % (2.0-8.0); MYELOCYTES % 1.0 % (0-0); NEUTROPHILS % MANUAL 61.0 % (45.0-75.0); PLATELET ESTIMATE INCREASED
[2025-01-14] MEDS: METHYLPREDNISOLONE SOD SUCC 40MG/ML (ACT-O-VIAL) IV SCH (21:07)
[2025-01-15] VITALS (98 sets, daily range): BP systolic 119–215; BP diastolic 61–110; PULSE 82–140; RESP 11–35; TEMP 36.6–36.8; O2SAT 73–100
[2025-01-15 05:55] LABS: HEMATOCRIT. 29.7 % (36.0-48.0); HEMOGLOBIN. 9.4 g/dL (12.0-16.0); MEAN PLATELET VOLUME 9.1 fl (7.4-10.4); PLATELET 431 x1000/uL (130-400); RED BLOOD CELL COUNT 3.33 mill/uL (4.2-5.4); RED CELL DISTRIBUTION WIDTH 19.4 % (11.6-14.6)
[2025-01-15 06:10] LABS: UREA NITROGEN BLOOD 63.0 mg/dL (9-23)
[2025-01-15 06:33] LABS: CREATININE 6.6 mg/dL (0.6-1.0)
[2025-01-15] MEDS: QUETIAPINE FUMARATE 50MG TABLET GT SCH (09:51)
[2025-01-15 21:37] LABS: BAND% 2.0 % (1.0-6.0); EOSINOPHILS % MANUAL 2.0 % (0.0-5.0); LYMPHOCYTES % MANUAL 2.0 % (20.0-60.0); METAMYELOCYTES % 1.0 % (0-0); MONOCYTES % MANUAL 4.0 % (2.0-8.0); NEUTROPHILS % MANUAL 89.0 % (45.0-75.0); NUCLEATED RED BLOOD CELLS 2 /100 WBC
[2025-01-15 21:38] LABS: PLATELET ESTIMATE SLIGHTLY INCREASED
[2025-01-16] VITALS (94 sets, daily range): BP systolic 126–176; BP diastolic 67–116; PULSE 74–120; RESP 7–28; TEMP 36.114–37.1; O2SAT 92–100
[2025-01-16 05:34] LABS: HEMATOCRIT. 26.9 % (36.0-48.0); HEMOGLOBIN. 8.7 g/dL (12.0-16.0); MEAN PLATELET VOLUME 8.8 fl (7.4-10.4); PLATELET 369 x1000/uL (130-400); RED BLOOD CELL COUNT 3.00 mill/uL (4.2-5.4); RED CELL DISTRIBUTION WIDTH 19.1 % (11.6-14.6)
[2025-01-16 06:56] LABS: UREA NITROGEN BLOOD 70.0 mg/dL (9-23)
[2025-01-16 08:40] LABS: CREATININE 7.9 mg/dL (0.6-1.0)
[2025-01-16 11:50] LABS: EOSINOPHILS % MANUAL 1.0 % (0.0-5.0); LYMPHOCYTES % MANUAL 7.0 % (20.0-60.0); METAMYELOCYTES % 1.0 % (0-0); MONOCYTES % MANUAL 4.0 % (2.0-8.0); MYELOCYTES % 1.0 % (0-0); NEUTROPHILS % MANUAL 86.0 % (45.0-75.0); PLATELET ESTIMATE NORMAL
[2025-01-16] MEDS: METHYLPREDNISOLONE SOD SUCC 40MG/ML (ACT-O-VIAL) IV SCH (13:09)
[2025-01-16 21:27] LABS: PLATELET 264 x1000/uL (130-400); RED BLOOD CELL COUNT 2.31 mill/uL (4.2-5.4); RED CELL DISTRIBUTION WIDTH 20.3 % (11.6-14.6)
[2025-01-16 21:29] LABS: INR 1.1
[2025-01-16] MEDS: DEXMEDETOMIDINE 100 ML IV PRN (21:41)
[2025-01-17] VITALS (50 sets, daily range): BP systolic 75–212; BP diastolic 29–147; PULSE 67–143; RESP 8–44; TEMP 36.7–36.9; O2SAT 95–100
[2025-01-17 00:34] LABS: BG BASE EXCESS -1.0 mmol/L (-2.0-3.0); BG CARBOXYHEMOGLOBIN 0.8 % (0.5-1.5); BG DEOXYHEMOGLOBIN 1.0 % (0.0-5.0); BG FRACTION INSPIRED OXYGEN 40; BG HCO3 ACT 22.5 mmol/L (21.0-28.0); BG METHEMOGLOBIN 0.3 % (0.5-1.5); BG OXYGEN SATURATION 99.0 % (94.0-98.0); BG OXYHEMOGLOBIN 97.9 % (94.0-98.0); BG PCO2 32.7 mmHg (32.0-45.0); BG PEEP (cmH2O) 5.0 cmH2O; BG PH 7.456 (7.350-7.450); BG PO2 135.2 mmHg (83.0-108.0); BG SAMPLE SITE RIGHT BRACHIAL; BG TIDAL VOLUME(mL) 500.0 mL; BG TOTAL HEMOGLOBIN 9.2 g/dL (12.0-16.0); BG VENT MODE VENT - SIMV; BG VENT RATE 10.0 set
[2025-01-17] MEDS: MIDAZOLAM 100MG/100ML PMX 100 ML IV PRN (00:42)
[2025-01-17] MEDS: FENTANYL CITRATE/PF 2,500 MCG in SODIUM CHLORIDE 0.9% 200 ML IV PRN (00:43)
[2025-01-17 05:15] LABS: HEMATOCRIT. 21.3 % (36.0-48.0); MEAN PLATELET VOLUME 9.3 fl (7.4-10.4); PLATELET 243 x1000/uL (130-400); RED BLOOD CELL COUNT 2.11 mill/uL (4.2-5.4); RED CELL DISTRIBUTION WIDTH 20.6 % (11.6-14.6)
[2025-01-17 05:30] LABS: UREA NITROGEN BLOOD 43.0 mg/dL (9-23)
[2025-01-17 05:32] LABS: HEMOGLOBIN. 6.0 g/dL (12.0-16.0)
[2025-01-17 05:44] LABS: CREATININE 5.8 mg/dL (0.6-1.0)
[2025-01-17] MEDS ORDERED: EPINEPHRINE 10 MG in SODIUM CHLORIDE 0.9% 240 ML IV PRN (09:45)
[2025-01-17] MEDS ORDERED: CEFEPIME 1GM IN DEXT 5% 50ML IV SCH (15:30)
[2025-01-17 16:45] LABS: LYMPHOCYTES % MANUAL 9.0 % (20.0-60.0); MONOCYTES % MANUAL 9.0 % (2.0-8.0); NEUTROPHILS % MANUAL 82.0 % (45.0-75.0); PLATELET ESTIMATE NORMAL
[2025-01-17] MEDS ORDERED: CEFEPIME 1GM PREMIX 50ML IV SCH (17:00)
== END 2025-01-17 10:06 | DRG 5 ==
LOC: ER 14:03 → EDBEDREQ 14:53 → EDBEDREQTM 17:46 → CANBEDREQ 18:53 → EDBEDREQSVC 19:01 → MICUNO 19:38 → EDBEDREQTM 19:57 → EDBEDREQ 19:57 → ENRESERV 23:41 → MICUSO 12-25 04:23
PROVIDERS: ADMIT Internal Medicine; ATTEND Internal Medicine
PROC: 5A12012 Performance of Cardiac Output, Single, Manual (ICD-10-PCS; 2024-12-21)
PROC: 5A1D70Z Performance of Urinary Filtration, Intermittent, Less than 6 Hours Per Day (ICD-10-PCS; 2024-12-21)
PROC: 0BH17EZ Insertion of Endotracheal Airway into Trachea, Via Natural or Artificial Opening (ICD-10-PCS; 2024-12-21)
PROC: 5A1945Z Respiratory Ventilation, 24-96 Consecutive Hours (ICD-10-PCS; 2024-12-21)
PROC: 5A1955Z Respiratory Ventilation, Greater than 96 Consecutive Hours (ICD-10-PCS; principal; 2024-12-23)
PROC: 0BH17EZ Insertion of Endotracheal Airway into Trachea, Via Natural or Artificial Opening (ICD-10-PCS; 2024-12-23)
PROC: 5A1D70Z Performance of Urinary Filtration, Intermittent, Less than 6 Hours Per Day (ICD-10-PCS; 2024-12-23)
PROC: 5A1D70Z Performance of Urinary Filtration, Intermittent, Less than 6 Hours Per Day (ICD-10-PCS; 2024-12-25)
PROC: 5A1D70Z Performance of Urinary Filtration, Intermittent, Less than 6 Hours Per Day (ICD-10-PCS; 2024-12-27)
PROC: 5A1D70Z Performance of Urinary Filtration, Intermittent, Less than 6 Hours Per Day (ICD-10-PCS; 2024-12-29)
PROC: 5A1D70Z Performance of Urinary Filtration, Intermittent, Less than 6 Hours Per Day (ICD-10-PCS; 2024-12-30)
PROC: 5A1D70Z Performance of Urinary Filtration, Intermittent, Less than 6 Hours Per Day (ICD-10-PCS; 2024-12-31)
PROC: 06HY33Z Insertion of Infusion Device into Lower Vein, Percutaneous Approach (ICD-10-PCS; 2025-01-01)
PROC: B54BZZA Ultrasonography of Right Lower Extremity Veins, Guidance (ICD-10-PCS; 2025-01-01)
PROC: 5A1D70Z Performance of Urinary Filtration, Intermittent, Less than 6 Hours Per Day (ICD-10-PCS; 2025-01-02)
PROC: 0BH17EZ Insertion of Endotracheal Airway into Trachea, Via Natural or Artificial Opening (ICD-10-PCS; 2025-01-03)
PROC: 5A1935Z Respiratory Ventilation, Less than 24 Consecutive Hours (ICD-10-PCS; 2025-01-03)
PROC: 0B110F4 Bypass Trachea to Cutaneous with Tracheostomy Device, Open Approach (ICD-10-PCS; 2025-01-04)
PROC: 5A1D70Z Performance of Urinary Filtration, Intermittent, Less than 6 Hours Per Day (ICD-10-PCS; 2025-01-04)
PROC: 5A1D70Z Performance of Urinary Filtration, Intermittent, Less than 6 Hours Per Day (ICD-10-PCS; 2025-01-06)
PROC: 5A1D70Z Performance of Urinary Filtration, Intermittent, Less than 6 Hours Per Day (ICD-10-PCS; 2025-01-08)
PROC: 0DH63UZ Insertion of Feeding Device into Stomach, Percutaneous Approach (ICD-10-PCS; 2025-01-09)
PROC: 30233N1 Transfusion of Nonautologous Red Blood Cells into Peripheral Vein, Percutaneous Approach (ICD-10-PCS; 2025-01-09)
PROC: 5A1D70Z Performance of Urinary Filtration, Intermittent, Less than 6 Hours Per Day (ICD-10-PCS; 2025-01-09)
PROC: 5A1D70Z Performance of Urinary Filtration, Intermittent, Less than 6 Hours Per Day (ICD-10-PCS; 2025-01-11)
PROC: 5A1D70Z Performance of Urinary Filtration, Intermittent, Less than 6 Hours Per Day (ICD-10-PCS; 2025-01-14)
PROC: 5A1D70Z Performance of Urinary Filtration, Intermittent, Less than 6 Hours Per Day (ICD-10-PCS; 2025-01-16)
DX: A41.9 Sepsis, unspecified organism (principal); I46.9 Cardiac arrest, cause unspecified; I13.2 Hypertensive heart and chronic kidney disease with heart failure and with stage 5 chronic kidney disease, or end stage renal disease; I21.4 Non-ST elevation (NSTEMI) myocardial infarction; E46 Unspecified protein-calorie malnutrition; G93.1 Anoxic brain damage, not elsewhere classified; G92.8 Other toxic encephalopathy; R58 Hemorrhage, not elsewhere classified; D64.9 Anemia, unspecified; E11.22 Type 2 diabetes mellitus with diabetic chronic kidney disease; R65.20 Severe sepsis without septic shock; N18.6 End stage renal disease; Z99.2 Dependence on renal dialysis; Z99.11 Dependence on respirator [ventilator] status; J96.01 Acute respiratory failure with hypoxia; E66.01 Morbid (severe) obesity due to excess calories; J44.89 Other specified chronic obstructive pulmonary disease; I50.33 Acute on chronic diastolic (congestive) heart failure; E87.20 Acidosis, unspecified; E78.5 Hyperlipidemia, unspecified; E87.5 Hyperkalemia; K11.20 Sialoadenitis, unspecified; J95.01 Hemorrhage from tracheostomy stoma; Y83.8 Other surgical procedures as the cause of abnormal reaction of the patient, or of later complication, without mention of misadventure at the time of the procedure; Y92.230 Patient room in hospital as the place of occurrence of the external cause; T82.838A Hemorrhage due to vascular prosthetic devices, implants and grafts, initial encounter; H05.20 Unspecified exophthalmos; R13.12 Dysphagia, oropharyngeal phase; E87.1 Hypo-osmolality and hyponatremia; E61.1 Iron deficiency; S00.511A Abrasion of lip, initial encounter; S60.212A Contusion of left wrist, initial encounter; S20.219A Contusion of unspecified front wall of thorax, initial encounter; S30.11XA Contusion of abdominal wall, initial encounter; X58.XXXA Exposure to other specified factors, initial encounter; Y93.89 Activity, other specified; Y92.89 Other specified places as the place of occurrence of the external cause; Y99.8 Other external cause status; Z88.8 Allergy status to other drugs, medicaments and biological substances; Z91.158 Patient's noncompliance with renal dialysis for other reason; Z79.899 Other long term (current) drug therapy; Z68.30 Body mass index [BMI] 30.0-30.9, adult
CPT/HCPCS: 31500; 31720; 36415; 36556; 36600; 70496; 70498; 70551; 71045; 76700; 77001; 80048; 80051; 80053; 80076; 80305; 81003; 82375; 82607; 82728; 82746; 82805; 82962; 83036; 83540; 83550; 83735; 83930; 84100; 84132; 84145; 84295; 84443; 84478; 84484; 84703; 85014; 85018; 85025; 85027; 85044; 85384; 86705; 86706; 86709; 86850; 86870; 86900; 86920; 87070; 87340; 90935; 93005; 93306; 93970; 93971; 94002; 94003; 94070; 94640; 94664; 98960; 99291; A4606; C1752; J0360; J0690; J0692; J0696; J0885; J1644; J1650; J1815; J2004; J2060; J2175; J2250; J2405; J2470; J2597; J2704; J2919; J2997; J3010; J3490; J7030; J7050; P9016; Q9967; A4217; J0131